=== PATIENT | male | born 1960 | race Caucasian/White ===

== ENCOUNTER 2021-01-27 09:34 | Emergency (ER) | payer OTHER ==
--- NOTE | 2021-01-27 11:36 | RAD REPORT ---
EXAM DESCRIPTION: RAD - Tib Fib Right - 01/27/2021 11:16 am CLINICAL HISTORY: Right leg pain FINDINGS: No fracture is seen. No bony abnormality is displayed
--- NOTE | 2021-01-27 11:44 | RAD REPORT ---
EXAM DESCRIPTION: USExtremity Venous Uni Ltd01/27/2021 11:34 am CLINICAL HISTORY: Right leg pain COMPARISON: None. FINDINGS: Right common femoral, superficial femoral, popliteal and right posterior tibial veins are generally compressible and demonstrate augmentation. Doppler demonstrates good flow. IMPRESSION: No evidence of deep venous thrombosis involving the right lower extremity.
--- NOTE | 2021-01-27 12:10 | EDPHYS ---
Physician Documentation [facility] Name: Bryan Saravia Age: 60 yrs Sex: Male : 1960 Arrival Date: 01/27/2021 Time: 09:35 Bed 14 Private MD: ED Physician Asim Jackman HPI: 01/27 10:30 This 60 yrs old Male presents to ER via Ambulatory with complaints of Leg Injury. cp 10:30 The patient presents with an injury, pain, that is acute. The complaints affect the cp lateral aspect of right calf. 10:30 Context: resulted from trip and fall 1 week ago. cp 10:30 Modifying factors: the symptoms are aggravated by weight bearing, walking. Associated cp signs and symptoms: Pertinent negatives fever, numbness, rash, warmth. Historical: - Allergies: 10:16 No Known Allergies; vg1 - Home Meds: 10:16 Eliquis oral [Active]; vg1 - PMHx: 10:16 Atrial fibrillation; vg1 - PSHx: 10:16 None; vg1 - Immunization history:: Client reports receiving the 2nd dose of the Covid vaccine. - Social history:: Smoking status: Patient denies any tobacco usage or history of. ROS: 10:35 MS/extremity: Positive for pain, tenderness, of the lateral aspect of right lower leg, cp Negative for deformity, paresthesias. 10:35 Eyes: Negative for injury, pain, redness, and discharge. cp 10:35 Constitutional: Negative for body aches, chills, fever. 10:35 Cardiovascular: Negative for chest pain, edema, palpitations. 10:35 Respiratory: Negative for cough, shortness of breath, wheezing. 10:35 Skin: Negative for cellulitis, rash. 10:35 Neuro: Negative for altered mental status, headache, weakness. 10:35 All other systems are negative. Exam: 10:45 Constitutional: The patient appears in no acute distress, alert, awake, cp non-diaphoretic, non-toxic, well developed, well nourished. 10:45 Head/Face: Normocephalic, atraumatic. cp 10:45 Cardiovascular: Rate: normal, Edema: is not appreciated, JVD: is not appreciated. 10:45 Respiratory: the patient does not display signs of respiratory distress, Respirations: normal, no use of accessory muscles, no retractions, labored breathing, is not present. 10:45 Back: pain, is absent, ROM is normal. 10:45 Musculoskeletal/extremity: Extremities: grossly normal except: noted in the lateral aspect of right lower leg: pain, tenderness, There is no evidence of deformity, erythema, Perfusion: the extremity is normally perfused throughout, Weight bearing: able to fully bear weight. 10:45 Skin: cellulitis, is not appreciated, no rash present. Vital Signs: 10:14 BP 145 / 95; Pulse 83; Resp 16; Temp 98.0; Pulse Ox 98% ; Weight 102.06 kg; Height 5 vg1 ft. 10 in. (177.80 cm); Pain 0/10; 11:30 BP 130 / 89; Pulse 82; Resp 16; Pulse Ox 97% ; vg1 10:14 Body Mass Index 32.28 (102.06 kg, 177.80 cm) vg1 MDM: 10:08 Patient medically screened. cp 11:00 Differential diagnosis: closed fracture, contusion, DVT. cp 12:08 Data reviewed: vital signs, nurses notes, radiologic studies, plain films, ultrasound. cp 12:08 Test interpretation: by ED physician or midlevel provider: plain radiologic studies. cp Counseling: I had a detailed discussion with the patient and/or guardian regarding: the historical points, exam findings, and any diagnostic results supporting the discharge/admit diagnosis, radiology results, to return to the emergency department if symptoms worsen or persist or if there are any questions or concerns that arise at home. ED course: Radiology studies reviewed and US negative for DVT, xrays negative for fracture. Recommend rest, heat/ice and NSAIDs for pain. 01/27 10:27 Order name: XRAY Tib Fib RIGHT; Complete Time: 11:49 cp 01/27 11:50 Interpretation: Report reviewed. cp 01/27 10:27 Order name: US Extremity Venous Unilateral Ltd; Complete Time: 11:49 cp 01/27 12:10 Order name: Crutches; Complete Time: 12:25 cp Administered Medications: No medications were administered Disposition: 17:21 Co-signature as Attending Physician, Asim Jackman MD I agree with the assessment and kdr plan of care. Disposition Summary: 01/27/21 12:09 Discharge Ordered Location: Home cp Problem: new cp Symptoms: have improved cp Condition: Stable cp Diagnosis - Pain in right lower leg cp Followup: cp - With: Private Physician - When: 2 - 3 days - Reason: Worsening of condition Discharge Instructions: - Discharge Summary Sheet cp - Musculoskeletal Pain cp - How to Use Cold Therapy cp - Heat Therapy cp Forms: - Medication Reconciliation Form cp - Thank You Letter cp - Antibiotic Education cp - Prescription Opioid Use cp Prescriptions: - Naprosyn 500 mg Oral Tablet - take 1 tablet by ORAL route 2 times per day take with food; 30 tablet; Refills: cp 0, Product Selection Permitted Signatures: Dispatcher [employer] EDAsim Evans MD MD kdr Page, Corey, PA PA Ivelisse Bailey, RN RN vg1
--- NOTE | 2021-01-27 12:10 | ER ---
Nurse's Notes [facility] Name: Bryan Saravia Age: 60 yrs Sex: Male : 1960 Arrival Date: 01/27/2021 Time: 09:35 Bed 14 Private MD: Diagnosis: Pain in right lower leg Presentation: 01/27 10:14 Chief complaint: Patient states: Right leg pain x 1 week, states tripped over a tree vg1 and is unable to step onto ball of foot. Also states pain 'in arch of right foot when stepping wrong'. Coronavirus screen: Vaccine status: Patient reports receiving the 2nd dose of the covid vaccine. Client denies travel out of the [place] in the last 14 days. Ebola Screen: Patient negative for fever greater than or equal to 101.5 degrees Fahrenheit, and additional compatible Ebola Virus Disease symptoms. Initial Sepsis Screen: Does the patient meet any 2 criteria? No. Patient's initial sepsis screen is negative. Does the patient have a suspected source of infection? No. Patient's initial sepsis screen is negative. Risk Assessment: Do you want to hurt yourself or someone else? Patient reports no desire to harm self or others. Onset of symptoms was January 20, 2021. 10:14 Method Of Arrival: Ambulatory vg1 10:14 Acuity: WILDER 4 vg1 Triage Assessment: 10:16 General: Appears in no apparent distress. comfortable, Behavior is calm, cooperative. vg1 Pain: Complains of pain in right costello and dorsum of right foot Pain currently is 0 out of 10 on a pain scale. at worst was 9 out of 10 on a pain scale. Quality of pain is described as shooting, Pain began x 1 week. EENT: No signs and/or symptoms were reported regarding the EENT system. Neuro: Level of Consciousness is awake, alert, obeys commands, Oriented to person, place, time, situation. Cardiovascular: Patient's skin is warm and dry. Pulses are palpable in right dorsalis pedis artery and left dorsalis pedis artery. Respiratory: Airway is patent Respiratory effort is even, unlabored. GI: No signs and/or symptoms were reported involving the gastrointestinal system. : No signs and/or symptoms were reported regarding the genitourinary system. Derm: Bruising that is on lateral aspect of right calf blue. Musculoskeletal: Circulation, motion, and sensation intact. Historical: - Allergies: 10:16 No Known Allergies; vg1 - Home Meds: 10:16 Eliquis oral [Active]; vg1 - PMHx: 10:16 Atrial fibrillation; vg1 - PSHx: 10:16 None; vg1 - Immunization history:: Client reports receiving the 2nd dose of the Covid vaccine. - Social history:: Smoking status: Patient denies any tobacco usage or history of. Screenin:18 Abuse screen: Denies threats or abuse. Nutritional screening: No deficits noted. vg1 Tuberculosis screening: No symptoms or risk factors identified. Fall Risk Fall in past 12 months (25 points). No secondary diagnosis (0 pts). No IV (0 pts). Ambulatory Aid- None/Bed Rest/Nurse Assist (0 pts). Gait- Normal/Bed Rest/Wheelchair (0 pts) Mental Status- Oriented to own ability (0 pts). Total Bui Fall Scale indicates Low Risk Score (25-44 pts). Fall prevention measures have been instituted. Side Rails Up X 2 Placed close to Nursing Station Family Present and informed to notify staff if they need to leave bedside. Assessment: 10:18 Reassessment: SEE TRIAGE. vg1 11:30 Reassessment: Patient appears in no apparent distress at this time. No changes from vg1 previously documented assessment. Patient and/or family updated on plan of care and expected duration. Pain level reassessed. Patient is alert, oriented x 3, equal unlabored respirations, skin warm/dry/pink. Vital Signs: 10:14 BP 145 / 95; Pulse 83; Resp 16; Temp 98.0; Pulse Ox 98% ; Weight 102.06 kg; Height 5 vg1 ft. 10 in. (177.80 cm); Pain 0/10; 11:30 BP 130 / 89; Pulse 82; Resp 16; Pulse Ox 97% ; vg1 10:14 Body Mass Index 32.28 (102.06 kg, 177.80 cm) vg1 ED Course: 09:35 Patient arrived in ED. as 10:06 Jagjit Leary PA is PHCP. cp 10:06 Asim Jackman MD is Attending Physician. cp 10:07 Patient has correct armband on for positive identification. Bed in low position. Call 5 light in reach. Pulse ox on. NIBP on. 10:14 Ivelisse Chavez, RN is Primary Nurse. vg1 10:16 Triage completed. vg1 10:16 Arm band placed on. vg1 10:18 No provider procedures requiring assistance completed. Patient did not have IV access vg1 during this emergency room visit. 11:16 XRAY Tib Fib RIGHT In Process Unspecified. EDMS 11:34 US Extremity Venous Unilateral Ltd In Process Unspecified. EDMS 12:31 Crutch training done. 5 Administered Medications: No medications were administered Outcome: 12:09 Discharge ordered by MD. cp 12:26 Discharged to home ambulatory. ss 12:26 Condition: good 12:26 Discharge instructions given to patient, Instructed on discharge instructions, follow up and referral plans. medication usage, Demonstrated understanding of instructions, follow-up care, medications, Prescriptions given X 1. 12:27 Patient left the ED. ss Signatures: Dispatcher [employer] Yvonne Fagan Shelby, RN RN Jagjit Leary PA PA cp Martinez, Maria Ivelisse Degroot, RN RN vg1
[2021-01-27 12:32] VITALS: TEMP 98
[2021-01-27 12:33] VITALS: BP 130/89; O2SAT 97
== END 2021-01-27 12:27 | disposition home or self-care (01) ==
LOC: ER 09:34
DX: M79.661 Pain in right lower leg (principal); I48.91 Unspecified atrial fibrillation; Z79.01 Long term (current) use of anticoagulants
CPT/HCPCS: 93971; 99284